=== PATIENT | female | born 1955 ===

== ENCOUNTER 2024-12-04 06:23 | Day surgery (SDC) | payer MEDICARE, SELFPAY | END 2024-12-04 08:53 | disposition home or self-care (01) | LOC: GI 06:23 | PROVIDERS: ATTENDING PHYSICIAN Internal Medicine Gastroenterology | DX: D12.0 Benign neoplasm of cecum (principal); D12.4 Benign neoplasm of descending colon; D12.7 Benign neoplasm of rectosigmoid junction; K63.5 Polyp of colon; D12.8 Benign neoplasm of rectum; K64.8 Other hemorrhoids | CPT/HCPCS: 45385; 88305 ==